=== PATIENT | female | born 1960 | race Hispanic/Latino ===

== ENCOUNTER 2017-11-14 12:34 | Outpatient (CLI) | payer SELFPAY ==
--- NOTE | 2017-11-14 17:24 | MMO ---
BILATERAL SCREENING MAMMOGRAM 11/14/17 HISTORY: Screening. COMPARISON: None. TECHNIQUE: Bilateral screening CC and MLO mammograms . FINDINGS: Intramammary lymph nodes left breast. No suspicious mass, architectural distortion or microcalcificat ions. IMPRESSION: BI-RADS 2: Benign Finding(s) Routine annual screening mammography (for women over age 40). POS: [facility]
== END 2017-11-14 12:35 | disposition home or self-care (01) ==
LOC: SCSMAMMO 12:34
PROVIDERS: ATTEND Family Medicine
DX: Z12.31 Encounter for screening mammogram for malignant neoplasm of breast (principal)
CPT/HCPCS: 77067

== ENCOUNTER 2020-01-12 13:49 | Emergency (ER) | payer OTHER, SELFPAY ==
[~2020-01-12 13:49] MED LIST: Iopamidol 370 76% 100 ML VIAL ONE
--- NOTE | 2020-01-12 14:25 | RAD ---
Chest one view HISTORY: Cough. Fever. COMPARISON: 02/05/2015. FINDINGS: Cardiac silhouette is magnified by projection. Pulmonary vasculature is unremarkable. Mediastinum is midline. No lobar consolidation or evidence of pneumothorax. Postoperative changes cervical spine evident. youth nutritional monitor leads overlie the chest. IMPRESSION : No active cardiopulmonary abnormalities are demonstrated.
[2020-01-12 14:50] LABS: #Basophils 0.1 thou/uL (0.0-0.2); #Monocytes 0.4 thou/uL (0.11-0.59); #Neutrophils 2.6 thou/uL (1.40-6.50); %Basophils 1.6 % (0.0-1.0); %Eosinophils 0.7 % (0.0-10.0); %Lymphocytes 39.3 % (21.0-51.0); %Monocytes 7.8 % (0.0-10.0); %Neutrophils 50.6 % (42.0-75.0); Hemoglobin 13.1 g/dL (12.0-16.0); Red Blood Cell (RBC) Count 3.36 mill/uL (4.20-5.40); White Blood Cell (WBC) Count 5.1 thou/uL (4.8-10.8)
[2020-01-12 14:52] LABS: ALT (SGPT) 16 U/L (8-55); AST (SGOT) 20 U/L (5-34); Albumin 4.4 g/dL (3.5-5.0); Alkaline Phosphatase 59 U/L (40-110); Anion Gap 14 mmol/L (10-20); BUN (Urea Nitrogen) 10 mg/dL (9.8-20.1); Bilirubin, Total 0.5 mg/dL (0.2-1.2); CK (CPK) 91 U/L (29-168); Calc. Creatinine Clearance 0 mL/min (70-130); Calcium 9.5 mg/dL (7.8-10.44); Carbon Dioxide 23 mmol/L (22-29); Chloride 106 mmol/L (98-107); Estimated GFR-MDRD Greater than 90; Globulin 2.6 g/dL (2.4-3.5); Glucose 115 mg/dL (70-105); Lipase 22 U/L (8-78); Potassium 3.6 mmol/L (3.5-5.1); Sodium 139 mmol/L (136-145)
[2020-01-12 15:24] LABS: Mean Corpuscular HGB CONC 35.9 g/dL (32.0-36.0); Mean Corpuscular Hemoglobin 38.9 pg (27.0-31.0); Mean Platelet Volume 6.9 fL (7.4-10.4); Platelet Count 197 thou/uL (130-400); RBC Distribution Width 10.6 % (11.5-14.5)
[2020-01-12 15:25] LABS: MDiff Complete? YES; Macrocytosis SLIGHT = 6-15 cells (100X) (0-5/hpf)
[2020-01-12] MEDS ORDERED: Ketorolac Tromethamine 30 MG/ML VIAL ONE (15:39)
[2020-01-12] MEDS ORDERED: Ondansetron PF 4 MG/2 ML Vial ONE (15:40)
--- NOTE | 2020-01-12 17:20 | CT ---
CT ABDOMEN AND PELVIS WITH IV CONTRAST: 01/12/20 HISTORY: Abdomen pain. Vomiting and diarrhea. COMPARISON: 05/20/15 FINDINGS: Minimal linear scarring at the right anterior lung base. Small cysts of the kidneys noted. Largest is at the superior pole of the right kidney, measuring 1.0 cm greatest diameter. Pancreas is unremarkable. No enlarged lymph nodes or free fluid. Urinary bladder has a normal appeara nce. No evidence of bowel obstruction or inflammation. Appendix unremarkable. IMPRESSION: No significant abnormalities are demonstrated. Incidental type findings are stable. POS: [facility]
[2020-01-12] MEDS ORDERED: Acetaminophen 500 MG TAB ONE (17:45)
[2020-01-12 17:53] LABS: Bilirubin Negative (Negative); Blood, Urine Negative (Negative); Glucose, Urine (Dipstick) Negative (Negative); Leukocyte Trace (Negative); Nitrite Negative (Negative); Protein, Urine (Dipstick) Negative (Neg-Trace); Urobilinogen 0.2 mg/dL (Less than 2)
[2020-01-12 18:00] LABS: Bacteria/HPF None Seen HPF (None Seen); Clarity Clear (Clear); RBC/HPF None Seen HPF (0-3); Squamous Epithelial 0-3 HPF (0-3); WBC/HPF None Seen HPF (0-3)
[2020-01-13 10:10] LABS: SARS-CoV-2 MS2 Positive; SARS-CoV-2 N Gene Negative; SARS-CoV-2 S Gene Negative; SARS-CoV-2 orf1ab Negative
--- NOTE | 2020-01-13 14:24 | EKG ---
Test Reason : Blood Pressure : / mmHG Vent. Rate : 070 BPM Atrial Rate : 070 BPM P-R Int : 122 ms QRS Dur : 088 ms QT Int : 396 ms P-R-T Axes : 067 052 058 degrees QTc Int : 427 ms Normal sinus rhythm Normal ECG Confirmed by JAREK NEVAREZ, ANGEL ([id number]), news videotape editor ANGELO RESTREPO ([id number]) on 01/13/2020 2:23:41 PM Referred By: Confirmed By:ANGEL TILLEY MD
== END 2020-01-12 18:50 | disposition home or self-care (01) ==
LOC: ERS 13:49
DX: B34.9 Viral infection, unspecified (principal); M79.10 Myalgia, unspecified site; Z20.828 Contact with and (suspected) exposure to other viral communicable diseases; Z79.899 Other long term (current) drug therapy; Z87.891 Personal history of nicotine dependence
CPT/HCPCS: 36415; 71045; 74177; 80053; 81003; 81015; 82550; 83690; 84484; 85025; 85379; 87081; 87430; 87635; 87804; 93005; 96361; 96372; 96374; 96375; J0500; J1885; J2405; Q9967; U0003

== ENCOUNTER 2021-02-03 06:16 | Emergency (ER) | payer OTHER, SELFPAY ==
[2021-02-03] MEDS ORDERED: Ketorolac Tromethamine 30 MG/ML VIAL ONE (06:30)
== END 2021-02-03 07:43 | disposition home or self-care (01) ==
LOC: ERS 06:16
DX: S63.502A Unspecified sprain of left wrist, initial encounter (principal); S63.501A Unspecified sprain of right wrist, initial encounter; Z87.891 Personal history of nicotine dependence; W19.XXXA Unspecified fall, initial encounter
CPT/HCPCS: 96372; J1885

== ENCOUNTER 2022-09-16 17:45 | Emergency (ER) | payer SELFPAY ==
[2022-09-16 19:06] LABS: SARS-CoV-2 NAA Rapid Test Not Detected (NotDetected)
== END 2022-09-16 19:27 | disposition home or self-care (01) ==
LOC: ERS 17:45
DX: J06.9 Acute upper respiratory infection, unspecified (principal); Z20.822 Contact with and (suspected) exposure to COVID-19; Z87.891 Personal history of nicotine dependence
CPT/HCPCS: 71045

== ENCOUNTER 2025-03-16 12:24 | Outpatient (CLI) | payer OTHER | END 2025-03-16 12:25 | disposition home or self-care (01) | LOC: BICMAMMO 12:24 | PROVIDERS: ATTEND Family Medicine | DX: Z12.31 Encounter for screening mammogram for malignant neoplasm of breast (principal) | CPT/HCPCS: 77063; 77067 ==